=== PATIENT | male | born 1930 | race Asian ===

== ENCOUNTER 2018-10-11 10:04 | Emergency (ER) | payer SELFPAY ==
[~2018-10-11] VITALS: Ht 162.6 cm; Wt 61.2 kg
--- NOTE | 2018-10-11 10:16 | NUR ---
pt walked into er with 2 family members giving history. pt speaking only momgolian.
[2018-10-11 10:45] LABS: BASOPHILS % (AUTO) 1.2 % (0.0-2.0); EOSINOPHILS # (AUTO) 0.1 K/uL (0.0-0.7); EOSINOPHILS % (AUTO) 6.9 % (0.0-7.0); HEMATOCRIT 34.1 % (36.7-47.1); HEMOGLOBIN 11.6 g/dL (12.5-16.3); LYMPHOCYTES # (AUTO) 0.9 K/uL (20.0-40.0); LYMPHOCYTES % (AUTO) 39.8 % (20.5-51.5); MEAN CORPUSCULAR HEMOGLOBIN 35.2 uug (23.8-33.4); MEAN CORPUSCULAR HGB CONC 34 g/dL (32.5-36.3); MEAN CORPUSCULAR VOLUME 103.3 fL (73.0-96.2); MONOCYTES # (AUTO) 0.2 K/uL (2.0-10.0); MONOCYTES % (AUTO) 8.2 % (0.0-11.0); NEUTROPHILS # (AUTO) 0.9 K/uL (1.8-8.9); NEUTROPHILS % (AUTO) 43.9 % (38.5-71.5); PLATELET COUNT (AUTO) 63 K/uL (152-348); WHITE BLOOD COUNT (AUTO) 2.2 K/uL (3.6-10.2)
[2018-10-11 10:51] LABS: CARBON DIOXIDE 27 mmol/L (21-32); CHLORIDE 106 mmol/L (98-107); CREATININE 0.7 mg/dL (0.6-1.3); GLUCOSE 101 mg/dL (74-106); POTASSIUM 3.5 mmol/L (3.5-5.1); UREA NITROGEN, BLOOD 16 mg/dL (7-18)
[2018-10-11 10:57] LABS: ALANINE AMINOTRANSFERASE 68 U/L (16-63); ALKALINE PHOSPHATASE 116 U/L (50-136); ASPARTATE AMINOTRANSFERASE 71 U/L (15-37); BILIRUBIN,DIRECT 0.2 mg/dL (0.0-0.2); BILIRUBIN,TOTAL 0.6 mg/dL (0.2-1.0)
[2018-10-11] MEDS ORDERED: ADVIL PO (11:02)
[2018-10-11 11:56] LABS: *BILIRUBIN,URIN NEGATIVE (NEGATIVE); *BLOOD, URINE NEGATIVE (NEGATIVE); *CLARITY,URINE CLEAR (CLEAR); *COLOR,URINE YELLOW (YELLOW); *KETONES,URINE NEGATIVE (NEGATIVE); *UROBILINOGEN,URINE 0.2 E.U./dl (NORMAL); LEUKOCYTE ESTERASE ,URINE NEGATIVE (NEGATIVE); NITRITE, URINE NEGATIVE (NEGATIVE); PH,URINE 6.5 (5.0-8.0); UGLUCOSE NEGATIVE (NEGATIVE)
--- NOTE | 2018-10-11 12:36 | NUR ---
Patient discharged to home in stable conditon. Written and verbal after care instructions given. Patient family verbalizes understanding of instructions.pt walks in steady gait. all the copies of studies provided for pt to follow up.
[2018-10-11 12:52] VITALS: BP 141/69
== END 2018-10-11 12:53 | disposition home or self-care (01) ==
LOC: ER 10:04
DX: D69.6 Thrombocytopenia, unspecified (principal); R51 Headache; Z79.899 Other long term (current) drug therapy
CPT/HCPCS: 36415; 70450; 71045; 83605; 85025; 85610; 87040; 87086; A4663

== ENCOUNTER 2018-11-15 11:05 | Emergency (ER) | payer MEDICAID ==
[~2018-11-15] VITALS: Ht 165.1 cm; Wt 68.0 kg
[~2018-11-15 11:05] MED LIST: ADVIL PO
[2018-11-15] MEDS ORDERED: IV NORMAL SALINE 250 ML IV ONE (11:18)
[2018-11-15] MEDS ORDERED: IOHEXOL 300MG/ML 100 ML INFUS..BTL ONE (11:18)
[2018-11-15] MEDS ORDERED: SWABABLE VALVE TRANSFER SET EA MC ONE (11:18)
--- NOTE | 2018-11-15 11:18 | NUR ---
JAN GREEN AT BEDSIDE FOR MSE.
--- NOTE | 2018-11-15 11:18 | NUR ---
PT A/OX4, PRESENTS TO THE ER W/ DAUGHTER, W/ MULTIPLE COMPLAINTS: PRIMARY COMPLAINT: ABD PAIN THAT STARTED YESTERDAY. PT IS UNABLE TO DESCRIBE THE ABD PAIN, STATES "I JUST FEEL DIFFERENT". SECONDARY COMPLAINT: BLOOD IN THE MOUTH. PER DAUGHTER'S REPORT, PT HAS BEEN HAVING NOSE BLEED, BUT NOTICED BLOOD IN THE MOUTH AFTER THE PT BEGAN COUGHING. TERTIARY COMPLAINT: BILATERAL KNEE PAIN. PT DOES NOT APPEAR TO BE IN ANY APPARENT DISTRESS AT THIS TIME. NO BLOOD NOTED IN THE MOUTH. NO COUGHING NOTED AT THIS TIME.
[2018-11-15 11:31] LABS: BASOPHILS % (AUTO) 1.5 % (0.0-2.0); EOSINOPHILS # (AUTO) 0.3 K/uL (0.0-0.7); EOSINOPHILS % (AUTO) 9.4 % (0.0-7.0); HEMOGLOBIN 12.4 g/dL (12.5-16.3); LYMPHOCYTES % (AUTO) 37.3 % (20.5-51.5); MEAN CORPUSCULAR HEMOGLOBIN 34.6 uug (23.8-33.4); MEAN CORPUSCULAR HGB CONC 34 g/dL (32.5-36.3); MEAN CORPUSCULAR VOLUME 102.8 fL (73.0-96.2); MONOCYTES # (AUTO) 0.2 K/uL (2.0-10.0); MONOCYTES % (AUTO) 8.6 % (0.0-11.0); NEUTROPHILS # (AUTO) 1.2 K/uL (1.8-8.9); NEUTROPHILS % (AUTO) 43.2 % (38.5-71.5); PLATELET COUNT (AUTO) 76 K/uL (152-348); WHITE BLOOD COUNT (AUTO) 2.8 K/uL (3.6-10.2)
[2018-11-15 11:35] LABS: CARBON DIOXIDE 29 mmol/L (21-32); CHLORIDE 105 mmol/L (98-107); CREATININE 0.9 mg/dL (0.6-1.3); GLUCOSE 93 mg/dL (74-106); POTASSIUM 3.9 mmol/L (3.5-5.1); UREA NITROGEN, BLOOD 22 mg/dL (7-18)
[2018-11-15 11:41] LABS: ALANINE AMINOTRANSFERASE 138 U/L (16-63); ALKALINE PHOSPHATASE 136 U/L (50-136); ASPARTATE AMINOTRANSFERASE 124 U/L (15-37); BILIRUBIN,DIRECT 0.2 mg/dL (0.0-0.2); BILIRUBIN,TOTAL 0.6 mg/dL (0.2-1.0)
[2018-11-15 11:49] LABS: *BILIRUBIN,URIN NEGATIVE (NEGATIVE); *BLOOD, URINE NEGATIVE (NEGATIVE); *CLARITY,URINE CLEAR (CLEAR); *COLOR,URINE YELLOW (YELLOW); *KETONES,URINE NEGATIVE (NEGATIVE); *UROBILINOGEN,URINE 0.2 E.U./dl (NORMAL); LEUKOCYTE ESTERASE ,URINE NEGATIVE (NEGATIVE); NITRITE, URINE NEGATIVE (NEGATIVE); PH,URINE 5.5 (5.0-8.0); UGLUCOSE NEGATIVE (NEGATIVE)
[2018-11-15 11:53] LABS: LIPASE 192 U/L (73-393)
[2018-11-15 11:55] LABS: BACTERIA,URINE FEW /HPF (NONE SEEN); MUCUS,URINE FEW /LPF (0-FEW); RBC,URINE NONE SEEN /HPF (0-3); SQUAMOUS EPITHELIAL CELL,UR FEW /HPF (NONE SEEN); WBC,URINE 0-3 /HPF (0-3)
[2018-11-15] MEDS ORDERED: IOHEXOL 350 100 ML INFUS..BTL ONE (11:55)
--- NOTE | 2018-11-15 12:04 | NUR ---
PT TAKEN TO RADIOLOGY FOR CT SCAN.
--- NOTE | 2018-11-15 12:23 | NUR ---
PT BACK IN ER FROM RADIOLOGY.
[2018-11-15] MEDS ORDERED: MORPHINE SULFATE 2 MG/1 ML DISP.SYRIN ONE (12:52)
[2018-11-15] MEDS ORDERED: MORPHINE SULFATE 2 MG/1 ML DISP.SYRIN IV ONE (13:00)
[2018-11-15] MEDS ORDERED: IV NORMAL SALINE 500 ML BAG IV ONE (13:30)
[2018-11-15] MEDS ORDERED: CEFTRIAXONE 1 G in IV DEXTROSE 5% 50 ML IV ONE (13:30)
[2018-11-15] MEDS ORDERED: AZITHROMYCIN IV 500 MG in IV DEXTROSE 5% 250 ML IV ONE (13:30)
--- NOTE | 2018-11-15 13:30 | NUR ---
AIRBORNE ISOLATION PRECAUTION IMPLEMENTED FOR RULE OUT TB.
[2018-11-15] MEDS ORDERED: CEFTRIAXONE 1 G VIAL ONE (13:31)
--- NOTE | 2018-11-15 13:47 | NUR ---
PAGED EVERARDO FOR PANEL CALL FOR ADMITTING MD AT [facility]. AWAITING CALLBACK. ATTEMPT 1.
--- NOTE | 2018-11-15 13:58 | NUR ---
JAN GREEN SPOKE W/ DR. NICHOLSON FOR TRANSFER TO [facility] M/S DUE TO NO AVAILABILITY OF NEGATIVE PRESSURE ROOM HERE AT THIS HOSPITAL.
[2018-11-15] MEDS ORDERED: AZITHROMYCIN 500 MG VIAL IV ONE (14:11)
--- NOTE | 2018-11-15 14:28 | NUR ---
PT WILL BE TRANSFERRED TO [facility] ROOM 101. [facility] [place]. CALL [phone] FOR REPORT.
--- NOTE | 2018-11-15 14:37 | NUR ---
AMBULANCE CALLED TRIP NUMBER [id number] AT [phone]
--- NOTE | 2018-11-15 14:45 | NUR ---
REPORT GIVEN TO KENDY DOMINGUEZ [facility].
--- NOTE | 2018-11-15 15:26 | NUR ---
PT WILL BE TRANSFERRED TO [facility] ROOM 101 VIA [facility] UN[address].
--- NOTE | 2018-11-15 15:27 | NUR ---
Patient Tranfers to outside Facility [facility] Physician: DR. NICHOLSON Location: [facility]
== END 2018-11-15 15:41 | disposition short-term general hospital (02) ==
LOC: ER 11:05
DX: J18.9 Pneumonia, unspecified organism (principal); K76.9 Liver disease, unspecified; D69.6 Thrombocytopenia, unspecified; R04.0 Epistaxis; Z79.899 Other long term (current) drug therapy
CPT/HCPCS: 36415; 71275; 72191; 74175; 80048; 80076; 81001; 83605; 83690; 84484; 85025; 85730; 93005; 96365; 96367; 99285; J0456; J0696; J7060 ×2; Q9967; 70030-TC; A4663; J2270; J7030; J7050